=== PATIENT | female | born 1980 | race African-American/Black ===

== ENCOUNTER 2018-11-01 12:04 | Emergency (ER) | payer MEDICAID ==
[~2018-11-01] VITALS: Ht 152.4 cm; Wt 63.5 kg
[2018-11-01] MEDS ORDERED: NKM (12:19)
--- NOTE | 2018-11-01 12:41 | Emergency Room Report ---
History of Present Illness General Chief Complaint: Sore Throat Source: Patient Present Illness HPI 38-year-old female presents to the emergency department complaining of 10 out of 10 in severity sore throat 2 days with fevers and chills. She reports swallowing exacerbates her pain she denies any relieving factors she reports frequent history of strep pharyngitis as a child. Denies neck pain, stiffness, cough, headache or photophobia. Allergies: Coded Allergies: No Known Allergies (Unverified , 11/01/18) Patient History Past Medical History: see triage record Past Surgical History: none Pertinent Family History: none Last Menstrual Period: 09/30/18 Now: No Reviewed Nursing Documentation: PMH: Agreed; PSxH: Agreed Nursing Documentation-PMH Past Medical History: No Stated History Review of Systems All Other Systems: negative except mentioned in HPI Physical Exam Vital Signs Date Time Temp Pulse Resp B/P (MAP) Pulse Ox O2 Delivery O2 Flow Rate FiO2 11/01/18 12:16 98.8 97 18 124/84 97 Room Air Sp02 EP Interpretation: reviewed, normal General Appearance: no apparent distress, alert, GCS 15, non-toxic Head: normocephalic, atraumatic Eyes: bilateral eye normal inspection, bilateral eye PERRL ENT: hearing grossly normal, normal voice, uvula midline, moist mucus membranes , tonsillar swelling, pharyngeal erythema, tonsillar exudate Neck: full range of motion, no meningismus, no bony tend Respiratory: lungs clear, normal breath sounds, speaking full sentences Cardiovascular #1: regular rate, rhythm, no edema Musculoskeletal: back normal, gait/station normal, normal range of motion, non- tender Neurologic: alert, oriented x3, responsive, motor strength/tone normal, sensory intact, speech normal, grossly normal Psychiatric: judgement/insight normal Skin: normal color, no rash, warm/dry, well hydrated Lymphatic: no adenopathy Medical Decision Making PA Attestation Dr. coto is my supervising Physician whom patient management has been discussed with. Diagnostic Impression: Primary Impression: Pharyngitis, acute Qualified Codes: J02.0 - Streptococcal pharyngitis Additional Impression: Acute bacterial tonsillitis ER Course 38-year-old female presents to the emergency department complaining of 10 out of 10 in severity sore throat 2 days with fevers and chills. She reports swallowing exacerbates her pain she denies any relieving factors she reports frequent history of strep pharyngitis as a child. Denies neck pain, stiffness, cough, headache or photophobia. Ddx considered but are not limited to: pharyngitis, strep, PHLEBOTOMIST, ludwigs angina, URI Vital signs: are WNL, pt. is afebrile H&PE are most consistent with: pharyngitis presumed strep. ORDERS: None required at this time as the diagnosis is clinical ED INTERVENTIONS: -Decadron 8mg - Augmentin PO - Viscous Lidocaine PO DISCHARGE: At this time pt. is stable for d/c to home. Will provide printed patient care instructions, and any necessary prescriptions. Care plan and follow up instructions have been discussed with the patient prior to discharge. Last Vital Signs Date Time Temp Pulse Resp B/P (MAP) Pulse Ox O2 Delivery O2 Flow Rate FiO2 11/01/18 12:16 98.8 97 18 124/84 97 Room Air Disposition: HOME, SELF-CARE Condition: Stable Departure Forms: Return to Work Return to Work Date: Nov 03, 2018 Work Restrictions: None Return to Full Activity: Nov 03, 2018 Patient Instructions: Tonsillitis Additional Instructions: Take medications as directed. Follow up with a Primary Care Provider in 3-5 days, even if your symptoms have resolved. --Please review list of primary care clinics, if you do not already have a primary care provider Return sooner to ED if new symptoms occur, or current symptoms become worse. - Please note that this Emergency Department Report was dictated using [employer]mb[employer]fusion operator technology software, occasionally this can lead to erroneous entry secondary to interpretation by the dictation equipment. Billie Siu Nov 01, 2018 12:41
[2018-11-01] MEDS ORDERED: AUGMENTIN 875-1 EAC1 ORAL (12:43)
[2018-11-01] MEDS ORDERED: LIDOCAINE VISC100 ML ORAL (12:43)
[2018-11-01] MEDS ORDERED: Augmentin 875mg Tab ORAL ONE (12:45)
[2018-11-01] MEDS ORDERED: Lidocaine 2% Visc 15ml soln ORAL ONE (12:45)
[2018-11-01] MEDS ORDERED: Dexamethasone 4mg/ml vial IM ONE (12:45)
[2018-11-01 12:50] VITALS: BP 120/89
[2018-11-01 13:05] VITALS: BP 117/80
== END 2018-11-01 13:05 | disposition home or self-care (01) ==
LOC: EMR 13:00
DX: J02.0 Streptococcal pharyngitis (principal); J03.90 Acute tonsillitis, unspecified
CPT/HCPCS: 96372; 99283; J1100